=== PATIENT | female | born 1940 | race Caucasian/White ===

== ENCOUNTER → 2017-12-16 07:30 | Outpatient (CLI) | payer MEDICARE, OTHER, SELFPAY ==
--- NOTE | 2017-12-16 | IMM_PTH ---
PATIENT: BRIAN VU LOC: [facility] U#:[id number] AGE/SX: 85/F ROOM: RE12/16/[address]: Dr. Stella De La Cruz MD : 1940 BED: DIS: SPEC #: [id number] RECD: 12/19/17 12:29 STATUS: HERVE DANAY #: [id number] MIGUEL ÁNGEL: 12/16/17 00:[address]: Stella De La Cruz DEPT: IMMUNOHISTOCHEMISTRY RECD BY: Flor Salinas ENTERED: 12/19/17 12:30 SP TYPE: IMMUNO OTHR DR: Dr. Burke Dockery MD Tissues: Left breast, NOS Procedures: CALPONIN-1 (add) CK8 (add) E-CAD (add) HER2 ANNETTA (add) MT (add) P40 (add) ER (initial) PHYSICIAN & INSTITUTION [place] [id number] SPECIMEN INFORMATION: Tissue Source: Left breast tissue Clinical Info: Microcalcifications upper inner quadrant Specimen Number: [id number] CPT code: 40167, 02311 x3, 32021 x3 METHODOLOGY: Deparaffinized sections of prefer/formalin-fixed tissue or PAP/DQ stained slides are incubated with monoclonal/polyclonal antibodies/oligonucleotide probes. Localization is made via biotin free immunoperoxidase method. Appropriate controls are performed and reacted as expected. Results on target cell population are indicated in the following table: RESULTS: ANTIBODY / CLONE RESULT E-Cad (ECH-6) positive CK8 (98hdqzP25) positive P40 (BC28) positive Calponin-1 (PI651S) positive MORPHOMETRIC ANALYSIS ER (clone 6F11) positive (>95%, moderate) MT (clone 16/1E2) positive (29%, weak to moderate) Her-2Neu (clone CB11) equivocal (1 - 2+) The prognostic test for HER2 is performed on formalin-fixed paraffin embedded tissue. A 3+ (positive) staining pattern is defined as intense, homogeneous, complete, circumferential membranous staining in >10% of contiguous tumor cells. A similar weak (2+) staining pattern is interpreted as equivocal. ALYCIA follow-up testing is recommended for all equivocal cases. Positivity/negativity for ER/MT is reported if > or < 1% of the tumor cells are immuno- reactive, respectively. The ASCO/CAP criteria is used for scoring. Reference: Journal of Clinical Oncology, 2013; 31:9018-7382 & 2010; 16:9924-6485. Duration of fixation: 59 Hrs; Sample Adequate: Yes. These assays have not been validated on decalcified tissues. Results should be interpreted with caution given the likelihood of false negativity on decalcified specimens. These tests were developed and their performance characteristics determined by [facility]. They may not have been cleared or approved by the U.S. Food and Drug Administration. The FDA has determined that such clearance or approval is not necessary. 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 SOFIE:rere 12/19/17
--- NOTE | 2017-12-16 08:25 | BRBX_PTH ---
PATIENT: BRIAN VU LOC: [facility] U#:[id number] AGE/SX: 85/F ROOM: RE12/16/[address]: Dr. Stella De La Cruz MD : 1940 BED: DIS: SPEC #: [id number] RECD: 12/16/17 12:33 STATUS: HERVE DANAY #: [id number] MIGUEL ÁNGEL: 12/16/17 08:[address]: Stella De La Cruz DEPT: SURGICAL PATHOLOGY RECD BY: Jerod Sanchez ENTERED: 12/16/17 14:07 SP TYPE: BREAST BX OTHR DR: Dr. Burke Dockery MD Tissues: Left breast, NOS Procedures: Surgery Specimen Level IV HEADER OPERATION: Left breast stereotactic needle core biopsy PRE-OP DIAGNOSIS: Microcalcifications [facility] TISSUE SUBMITTED: Left breast tissue, needle core biopsy ISCHEMIC TIME: 2 minutes FIXATION TIME: 59 hours MICROSCOPIC DIAGNOSIS Left breast, upper inner quadrant, stereotactic needle core biopsy: Ductal carcinoma in situ with the following characteristics: Pattern - cribriform Nuclear Grade ? intermediate Necrosis ? single cell necrosis Calcifications ? present in benign breast tissue Additional findings ? hyalinized fibroadenoma with focal calcifications. Negative for invasive malignancy. SOFIE:erre 12/19/17 COMMENT Immunohistochemistry ([id number]) supports the above diagnosis. ER/IA/Kyk3ome studies are being performed on sections of tumor and the results from this study will be reported separately ([id number]). MICROSCOPIC DESCRIPTION Slides are reviewed. GROSS DESCRIPTION Received in fixative is one container labeled with the patient's name and designated left breast. The specimen consists of multiple elongated fragments of guzmán-yellow fibroadipose tissue that in aggregate measure 3 x 2.5 x 0.3 cm. The entire specimen is submitted in two cassettes. / SOFIE:rere 12/16/17 TC:0 CPT: 32689
--- NOTE | 2017-12-16 23:04 | PCM.OPRPT ---
Report of Operation Date of Procedure: 12/16/17 Pre-Operative Diagnosis: abnormal calcifications in left breast mammograms Post-Operative Diagnosis: same Surgery/Procedure Performed:: left stereotactic breast biopsy Description of Surgical Findings:: left upper inner calcifications Type of Anesthesia:: Local - 1% xylocaine Specimen's removed: left breast tissue cores Estimated Blood Loss (mL): < 1 ml Description of Procedure: After informed consent was given, the patient was brought into the breast biopsy suite. Appropriate time out protocol was followed. She was then placed in the prone position on the stereotactic biopsy table. The patients left breast was then placed at the opening at the head of the table. A weatherization installer compression mammogram was then obtained in the lateral view. The suspicious radiological lesion was then identified. Stereo pictures of the lesion were then taken for XYZ coordinates. The Mammotome biopsy stylus was then positioned where it would be entering into the patients breast. The skin at this site was then cleansed with a surgical skin preparation. The skin and subcutaneous tissues at this site were then infiltrated with 1% xylocaine. A small skin incision was made with an 11 blade scalpel. The biopsy stylus was then positioned into the patients breast at the proper coordinates of depth. Using the Mammotome vacuum-assist device, several core samples of breast tissue were obtained. A specimen mammogram was the obtained and revealed that calcifications were within the specimen. A hemostatic marker clip was then placed into the biopsy cavity and a weatherization installer film revealed that it was properly deployed. The patient was then placed in the supine position and pressure was applied to the breast until no active bleeding was noted. Steristrips were applied to reapproximate the skin. A unilateral mammogram in the CC and MLO view were then taken which revealed that the marker clip was in the same area as the previous suspicious lesion. The patient tolerated the procedure well and was discharged from the breast biopsy suite in good condition. Grafts/Implants Used: Marker clip lot# [id number] - Complications none noted
== END ==
PROVIDERS: Family Provider Family Medicine; PCP Family Medicine; Visit Provider Surgery
DX: D05.12 Intraductal carcinoma in situ of left breast (principal); I25.10 Atherosclerotic heart disease of native coronary artery without angina pectoris; E11.9 Type 2 diabetes mellitus without complications; I10 Essential (primary) hypertension; D50.9 Iron deficiency anemia, unspecified; Z79.84 Long term (current) use of oral hypoglycemic drugs; Z79.82 Long term (current) use of aspirin; Z79.899 Other long term (current) drug therapy; Z85.3 Personal history of malignant neoplasm of breast; Z86.73 Personal history of transient ischemic attack (TIA), and cerebral infarction without residual deficits
CPT/HCPCS: 19081; 88305; 88341; 88342; J7050; A4648

== ENCOUNTER 2018-01-02 12:48 | Day surgery (SDC) | payer MEDICARE, OTHER, SELFPAY ==
[2018-01-02] VITALS (9 sets, daily range): BP systolic 114–183; BP diastolic 58–101; PULSE 65–77; RESP 16–18; TEMP 36.2–36.7; O2SAT 94–100; BMI 29.8
--- NOTE | 2018-01-02 13:30 | BI_ITS ---
SURGICAL BREAST SPECIMEN RADIOGRAPH CLINICAL: Document presence of tissue clip marker in biopsy specimen. FINDINGS: Specimen shows presence of tissue clip marker. Electronically Signed: Martinez Mcgrath MD at 8:20 EDT Tel [phone], Service support , BI/Breast Biopsy Specimen
[2018-01-02 13:46] LABS: Bedside Glucose 167 mg/dL (70-110)
[2018-01-02] MEDS: Cefazolin 2 GM in 0.9% Normal Saline 100 ML IV (16:05)
--- NOTE | 2018-01-02 16:10 | PCM.IMDPSTOP ---
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
--- NOTE | 2018-01-02 16:12 | PCM.DC.BS ---
Discharge Diet: No Restrictions Discharge Activity: Return to Normal Activity, May not drive while taking narcotic pain medications. Call your doctor if your incision/area has: Continuous Slow Oozing, Foul Smelling Discharge Call your doctor if you observe: Fever of 101 or Higher Additional Dressing/Incision Instructions:: Leave dressing in place. May get wet in shower. Do not soak - no tub baths/swimming. Wear supportive bra during the day Allergies/Adverse Reactions: Allergies lisinopril Allergy (Verified 12/26/17 08:26) swelling Medications to take at Discharge aspirin 81 mg tablet,delayed release 81 mg PO QDAY tab 11/09/17 calcium carbonate-vitamin D3 600 mg (1,500 mg)-500 unit capsule 1 cap PO QDAY ea 11/09/17 cholecalciferol (vitamin D3) 1,000 unit capsule 1,000 unit PO QDAY cap 11/09/17 cyanocobalamin (vit B-12) 1,000 mcg/mL injection kit 1,000 mcg IM QMONTH 11/09/17 ferrous sulfate 325 mg (65 mg iron) tablet 325 mg PO QDAY tab 11/09/17 fluticasone 50 mcg/actuation nasal spray,suspension 50 mcg INTRANASAL BID PRN 11/09/17 loratadine 10 mg tablet 10 mg PO QDAY 11/09/17 metformin ER 500 mg tablet,extended release 24hr 500 mg PO QDAY 11/09/17 simvastatin 20 mg tablet 20 mg PO QHS 11/09/17 Spironolactone [Aldactone] 25 mg PO DAILY 12/26/17 Hydrocodone Bitart/Apap 5-325 [[place] 5MG-325MG] 1 tab PO Q6H PRN PRN 7 Days #15 tab 01/02/18 The following prescriptions were given: Hydrocodone Bitart/Apap 5-325 [[place] 5MG-325MG] 1 tab PO Q6H PRN PRN 7 Days #15 tab PRN Reason: Pain Primary Care Physician: Burke Dockery MD [Primary Care Provider] - Please Follow Up With: Stella De La Cruz MD - call When: to be seen next week, please call for date and time, thank you
--- NOTE | 2018-01-02 16:39 | BREAST_PTH ---
PATIENT: BRIAN VU LOC: [facility] [place] U#:[id number] AGE/SX: 77/F ROOM: RE01/02/[address]: Dr. Stella De La Cruz MD : 1940 BED: DIS: 01/02/2018 SPEC #: [id number] RECD: 01/02/18 16:58 STATUS: HERVE RERaymundo #: [id number] MIGUEL ÁNGEL: 01/02/18 16:[address]: Stella De La Cruz DEPT: SURGICAL PATHOLOGY RECD BY: Jerod Sanchez ENTERED: 01/03/18 12:15 SP TYPE: BREAST OTHR DR: Dr. Burke Dockery MD Tissues: A - Left breast, NOS B - Left breast, NOS Procedures: Surgery Specimen Level IV Surgery Specimen Level V Comments: @ Specimen number changed from [id number] to [id number] @ on 01/03/18 at 1400 by ANETTE. HEADER OPERATION: Needle localized left breast lumpectomy PRE-OP DIAGNOSIS: Left breast ductal carcinoma in situ TISSUE SUBMITTED: A ? Left breast lumpectomy tissue to mammo at 1639, one long stitch - lateral, two short stitches - posterior, wire - medial, one short stitch - superior, B - Left breast, posterior margin suture aguirre tumor side MICROSCOPIC DIAGNOSIS A. Left breast, lumpectomy: Ductal carcinoma in situ. See cancer summary below. B. Left breast, posterior margin: Negative for carcinoma. Focal fibrocystic changes and adenosis. DUCTAL CARCINOMA IN SITU SUMMARY: (Including specimen A & B) Specimen - partial breast. Procedure - excision with wire-guided localization. Lymph node sampling ? no lymph node present. Specimen integrity ? multiple designated specimens (main excision and posterior margin). Specimen size: Main specimen - 6 x 4 x 3 cm Posterior margin ? 3.5 x 3 x 1.2 cm Specimen laterality ? left Tumor site ? upper inner quadrant (as per clinical information). Size (extent) of DCIS ? 1 x 0.4 cm, largest focus (measured microscopically) Number of blocks with DCIS - 3 Number of blocks examined ? 16 (specimen A & B) Histologic type - ductal carcinoma in situ. Architectural pattern ? cribriform Nuclear grade - grade 2 (intermediate) Necrosis - present, focal (single cell necrosis) Margins ? margin uninvolved by ductal carcinoma in situ. See comment. Treatment effect ? response to presurgical (neoadjuvant) therapy - no known presurgical therapy. Lymph nodes ? no lymph nodes submitted or found. Distant metastasis ? not applicable Additional pathologic findings ? changes consistent with previous biopsy site. Fibrocystic changes, adenosis and focal intraductal hyperplasia with atypia. Ancillary Studies from previous specimen ([id number] / [id number]): ER ? positive (>95%, moderate) TX ? positive (29%, weak to moderate) Her2 rigo ([facility]) ? equivocal (1-2+) Microcalcifications ? not identified Clinical history - Please make reference to previous specimen ([id number]) left breast, upper inner quadrant microcalcification with diagnosis of ductal carcinoma in situ. Pathologic Staging: pTis(DCIS) pNx Mx The above summary is in compliance with [employer] [place] [employer] (CAP) Cancer Protocols Checklist and [place] Joint Committee on Cancer (AJCC), Staging Manual, 8th Ed. SJ:rere 01/04/18 COMMENT The ductal carcinoma in situ is 1 mm from the posterior margin in specimen A. Additional posterior margin, specimen B is negative for carcinoma and measures 1.2 cm in thickness, overall the ductal carcinoma in situ is 1.3 cm away from the new posterior margin. Case has been reviewed in consultation with Dr. Zambrano who concurs with the above diagnosis. IDC:AM MICROSCOPIC DESCRIPTION Slides are reviewed. GROSS DESCRIPTION A - Received fresh for OR consultation labeled with the patient's name is a specimen designated left breast lumpectomy. The specimen consists of an irregular fragment of guzmán-yellow fibrofatty measuring 6 x 4 x 3 cm. The specimen is differentially inked as follows: anterior ? yellow, posterior ? black, superior ? blue, inferior ? green, medial ? red, and lateral ? orange. The specimen is serially sectioned and no mass lesion is identified. A blood-filled biopsy cavity measuring 1.8 x 0.5 x 0.5 cm is present located 0.2 cm from its closest (posterior) margin of excision. This information is conveyed to the surgeon intraoperatively. The specimen is serially sectioned and totally submitted in 12 cassettes. B - Received in fixative is one container labeled with the patient's name and designated posterior margin, suture aguirre tumor side. The specimen consists of an irregular fragment of yellow fatty tissue measuring 3.5 x 3 x 1.2 cm. The side with the suture is inked in black ink. The specimen is sectioned to reveal homogenous yellow cut surfaces. No mass lesion is identified. The specimen is totally submitted in four cassettes. / AM:rere 01/03/18 TC:0 CPT: 76399, 59726, 33679
[2018-01-02] MEDS: Bupivacaine 0.25% 30 ML Vial (17:15)
--- NOTE | 2018-01-02 17:23 | PCM.OPRPT ---
Report of Operation Date of Procedure: 01/02/18 Pre-Operative Diagnosis: left breast ductal carcinoma in situ Post-Operative Diagnosis: same Surgery/Procedure Performed:: left breast lumpectomy via wire localization Description of Surgical Findings:: left breast tissue - pathology states that no mass is noted but biopsy cavity close to posterior margin mechanical supervisor: NOT,DEFINED Type of Anesthesia:: General Anesthesiologist: Marvin Mcmullen Specimen's removed: left breast lumpectomy tissue, left breast cavity posterior margin sent in permanent with suture marking tumor side Drains: none Estimated Blood Loss (mL): 30 ml Fluids Replaced: 800 ml RL Description of Procedure: After informed consent was given, the patient was brought into the Breast Stereotactic Radiology suite and placed in the prone position on the [employer] stereotactic table. The patients left breast was placed in the opening at the head of the table. A kids activities coach compression mammogram was then obtained in the CC view. The marker clip that was previously placed was identified. Stereo pictures of the lesion were then taken for XYZ coordinates. The Kopans needle was then positioned where it would be entering into the patients breast. The skin at this site was then cleansed with a surgical skin preparation. The skin and subcutaneous tissues at this site were then infiltrated with 1% xylocaine. The Kopans needle was then positioned into the patients breast at the proper coordinates of depth. A kids activities coach film was obtained which revealed the wire in proper position. The patient was then placed in the supine position and the wire was taped into place. A unilateral mammogram in the CC and MLO view were then taken for use in the OR. The patient tolerated this portion of the procedure well and was brought to the AC awaiting surgery in the OR. The patient was then brought to the Operating Room and placed on the operating table in the supine position. A wire had already been placed in the stereotactic biopsy room in the radiology department as described above. The left breast with the wire in placed was then prepped with a sterile surgical skin preparation and sterile surgical drapes were placed. The skin and subcutaneous tissues at the site of the breast lesion was then infiltrated with local anesthetic. A transverse upper inner quadrant skin incision was then made with a 15 blade scalpel and carried down through to the subcutaneous tissues. Hemostasis was controlled with electrocautery. The wire was then palpated out and brought into the wound from outside. The breast tissue surrounding the wire was then carefully palpated out and from the surrounding tissues using electrocautery. The breast tissue, once from the breast, was then forwarded to the radiology department, where a specimen mammogram revealed that the marker clip was within the specimen. The breast tissue was then forwarded to pathology for analysis. Pathology review revealed that the closest margin was posteriorly. Therefore additional posterior margin tissue was excised from the wound cavity. It was placed in formalin with a suture marker on the tumor side. The wound cavity was carefully examined. No further suspicious tissue was palpated or visualized. Hemostasis was carefully controlled with electrocautery. The subdermal tissues were then approximated with vicryl suture. The incision was then reapproximated close using running monocryl suture. Cavilon and steristrips were then placed to reinforce the skin closure. A sterile dressing was then applied. The patient was then brought to the Recovery Room in stable condition. - Complications none noted - Admit VTE Documentation VTE Present on Admission: Yes VTE Mechan Device Prophylaxis: SCD's
[2018-01-02 17:51] LABS: Bedside Glucose 151 mg/dL (70-110)
== END 2018-01-02 19:32 | disposition home or self-care (01) ==
LOC: SDC 12:49 → AC 12:50
PROVIDERS: Family Provider Family Medicine; PCP Family Medicine; Visit Provider Surgery
PROC: (CPT 19301; principal; 2018-01-02 14:15)
DX: D05.12 Intraductal carcinoma in situ of left breast (principal); I25.10 Atherosclerotic heart disease of native coronary artery without angina pectoris; E11.9 Type 2 diabetes mellitus without complications; I10 Essential (primary) hypertension; D50.9 Iron deficiency anemia, unspecified; I35.0 Nonrheumatic aortic (valve) stenosis; E78.00 Pure hypercholesterolemia, unspecified; Z79.82 Long term (current) use of aspirin; Z79.84 Long term (current) use of oral hypoglycemic drugs; Z79.899 Other long term (current) drug therapy; Z78.0 Asymptomatic menopausal state; Z85.3 Personal history of malignant neoplasm of breast; Z86.73 Personal history of transient ischemic attack (TIA), and cerebral infarction without residual deficits
CPT/HCPCS: 19301; 19281; 76098; 82962; 88305; 88307; J7050; J7120; J2405